=== PATIENT | male | born 1990 | race Caucasian/White ===

== ENCOUNTER 2016-11-12 19:52 | Emergency (ER) | payer OTHER ==
--- NOTE | 2016-11-12 23:05 | ED ORDER SUMMARY ---
..... Patient: MAG SHANKAR OrderSheet [facility] VisitID: [id number] [address] [place] [address] 26y, M Registration Date/Time: 11/12/2016 ORDER SHEET Weight: 78.4 kg (stated) Allergies: Sulfa Antibiotics GENERAL ORDERS: US Venous Right Urgent (21:21 11/12/2016 AMcQuoid ER Tech1 verbal order read back to ABlanchette PA-C) (Ack 21:23 AMcQuoid ER Tech1) (21:45 KKnebel R.N.) Culture, Wound Deep (Arm) (abscess) Urgent (21:29 11/12/2016 ABlanchette PA-C) (Ack 21:33 AMcQuoid ER Tech1) (21:45 KKnebel R.N.) Chest 2V Urgent (21:30 11/12/2016 ABlanchette PA-C) (Ack 21:33 AMcQuoid ER Tech1) (22:19 Brianna) CBC w Diff Urgent (21:30 11/12/2016 ABlanchette PA-C) (Ack 21:33 AMcQuoid ER Tech1) (21:45 KKnebel R.N.) CMP Urgent (21:30 11/12/2016 ABlanchette PA-C) (Ack 21:33 AMcQuoid ER Tech1) (21:45 KKnebel R.N.) MEDICATION ORDERS: Clonidine Topical 0.2 mg (NOW) (22:37 11/12/2016 Cindi YARBROUGH) (Hold 23:12 KKnebel R.N.) IV FLUIDS: IV NS with Normal Saline 1 Liter: initial bolus none -, then 1000 mL/hr for X1 (NOW); Ridge (21:28 11/12/2016 ABlanchette PA-C) (22:00 KKnebel R.N.) Vancomycin IV 1 gm/200mL (NOW) (21:29 11/12/2016 ABlanchette PA-C) (22:00 KKnebel R.N.) Ativan IV 1 mg (NOW) (22:36 11/12/2016 Cindi YARBROUGH) (Hold 23:12 KKnebel R.N.) ORDER SHEET NOTES: [Electronically signed by Shira Vasquez R.N. (23:14 11/12/2016)] [Electronically signed by Mich Hui MD (21:36 11/15/2016)] [Electronically locked/signed by Shira Vasquez R.N. (23:14 11/12/2016)]
--- NOTE | 2016-11-12 23:05 | ED CLINICAL REPORT ---
Clinical Report - Physicians/Mid Levels [facility] [address] [place] [address] 11/12/2016 19:54 Patient: MAG SHANKAR Time Seen: 21:19 Nov 12 2016. Arrived- By private vehicle. Historian- patient. CPT: ER phys charges level 4 (#[id number]). HISTORY OF PRESENT ILLNESS Chief Complaint: BOIL. 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 Does not recall events relating to the onset. (about 1 months). It is described as burning and painful. He has had fever and muscle aches. and is still present. It is described as painful. It has been located on the right upper extremity, left upper extremity and right lower extremity. A cause has been identified. (IVDA). Similar symptoms previously: Recent medical care: Not recently seen/assessed. REVIEW OF SYSTEMS No fever, chills, sore throat, difficulty breathing or hoarseness. No lump in throat, enlarged lymph nodes, abdominal pain, nausea or diarrhea. No difficulty with urination, joint pain or vomiting. All systems otherwise negative, except as recorded above. PAST HISTORY Appendectomy. Hand surgery. Tonsillectomy. Medications: None. Allergies: Sulfa Antibiotics. SOCIAL HISTORY Heavy tobacco smoker (cigarette)- 1 pack per day. History of drug use: heroin, methamphetamines, marijuana. No alcohol use. ADDITIONAL NOTES The nursing notes have been reviewed. PHYSICAL EXAM Vital Signs: 11/12/2016 20:00 BP: 158/76. HR: 119. RR: 16. O2 saturation: 98%. Temp: 99.5 F. Pain level now: 6/10. Appearance: Alert. Patient in mild distress. Eyes: Pupils equal, round and reactive to light. Conjunctivae and eyelids normal. ENT: Nose normal. Pharynx normal. Neck: Neck supple. CVS: Normal heart rate and rhythm. Heart sounds normal. No cardiac murmur. Respiratory: No respiratory distress. Breath sounds normal. Chest nontender. Abdomen: Nontender. Skin: Skin warm and dry. No rash. Medium area of cellulitis with erythema to right leg and left arm. Single medium abscess with fluctuance and pointing to right arm. Extremities: Normal external inspection. Extremities nontender. Neuro: Oriented X 3. No motor deficit. No sensory deficit. LABS, X-RAYS, AND EKG Lower Extremity Sonography: No DVT seen, Phlegmon vs abscess over the mid calf. Unincapsulated. 1 cm by 3mm in depth. Study type: utilized color Doppler sonography. The exam was performed by a technical maintenance technician. The study was independently viewed by me and interpreted contemporaneously by me. Laboratory Tests: CBC w Diff: (OPAL: 11/12/2016 21:45) ( MsgRcvd 11/12/2016 21:51) Final results Test Result Flag Units (Reference) WHITE BLOOD COUNT 6.3 K/uL (4.5-11.5) RED BLOOD COUNT 4.57 M/uL (4.50-5.90) HEMOGLOBIN 11.8 L gm/dL (13.5-17.5) HEMATOCRIT 35.4 L % (41.0-53.0) MEAN CELL VOLUME 77 L fL (80-100) MEAN CORPUSCULAR HGB 26 pg (26-34) MEAN CORPUSCULAR HGB CONC 33 g/dL (31-37) RED CELL DISTRIBUTION WIDTH 14.1 % (11.6-14.8) PLATELET COUNT 283 K/uL (150-400) NEUTROPHIL % 71.4 % (50-75) LYMPH % 19.3 L % (25-40) MONO % 8.1 % (3-14) EOSINOPHIL % 0.8 % (0-4) BASOPHIL % 0.4 % (0-2) CMP: (OPAL: 11/12/2016 21:45) ( MsgRcvd 11/12/2016 22:06) Final results Test Result Flag Units (Reference) GLUCOSE 118 H mg/dL (70-110) BUN 16 mg/dL (7-18) CREATININE 1.0 mg/dL (0.6-1.3) Estimated GFR >60 mL/min Estimated GFR- >60 mL/min Note: Persistent reduction over 3 months in eGFR<60 mL/min/1.73 m2 defines CKD. Patients with eGFR values>=60 mL/min/1.73 m2 may also have CKD if evidence ofpersistent proteinuria. Additional information may be foundat [email or web address].org. SODIUM 133 L mmol/L (136-145) POTASSIUM 4.0 mmol/L (3.5-5.1) CHLORIDE 99 mmol/L (98-107) CARBON DIOXIDE 27 mmol/L (21-32) CALCIUM 8.9 mg/dL (8.5-10.1) TOTAL PROTEIN 8.1 g/dL (6.4-8.2) ALBUMIN 3.8 g/dL (3.3-5.0) BILIRUBIN, TOTAL 1.1 H mg/dL (0.0-1.0) ALKALINE PHOSPHATASE 134 H U/L (46-116) AST (SGOT) 27 U/L (15-37) ALT (SGPT) 26 U/L (12-78) . PROGRESS AND PROCEDURES Course of Care: Pt notes rash progression over the past 2 days over right calf Pt also has what appears to multiple micro-abscesses and cellulitis on the left forearm and arm. Recommended admission and arrangements made but patient changed her mind and decided to leave against medical advice. Patient/family counseled. Referred for substance abuse counseling. Disposition: Discharged. CLINICAL IMPRESSION Cellulitis of the right lower leg, left upper arm and left forearm. Substance abuse problems: abuse of cannabis, opiates and methamphetamine. Leaving AMA. INSTRUCTIONS Warnings: Further evaluation is necessary. AMA warnings: Time of assessment: 23:02 Nov 12 2016. Oriented to person, place, and time. Gives appropriate answers and rational explanation of refusal of care. Speaks coherently. No signs of psychosis, auditory hallucinations, delusional thinking, suicidal ideations or slurred speech. No tangential thinking, visual hallucinations or homicidal ideations. Abstract thinking intact. Clinical Impression: the patient has the capacity to make decisions regarding the medical care offered. Aware of suspected diagnosis suggested by screening exam. The suspected diagnosis, based upon the initiated medical screening exam, is Cellulitis in 2 separate areas as well as micro-abscesses due to IVDA. SBE not ruled out. and has been discussed with the patient and family. Acknowledges understanding of the reasons for recommendations regarding medical treatment and admission to facility. The recommended medical care being refused is admission to hospital. and has been discussed with the patient and family. The risks of refusing recommended care that were disclosed are , permanent mental impairment, loss of limb and loss of current lifestyle. Alternatives for the patient's care that were offered yet declined include transfer. Discharge instructions were provided to the patient. ( Pt states he will return tomorrow.). REFUSAL OF CARE STATEMENT (patient to review and sign in discharge instructions): I have read this paragraph. I understand that a doctor at this hospital wants to give me certain medical care. The doctor explained that care to me, and I understand what that care is. The doctor also explained to me what could happen to me if I leave here without having that care, and I understand what he said. I want to leave this hospital without receiving the recommended care. I know that I am welcome to return to this hospital at any time to receive the recommended care or any other care that I may need at any time, regardless of my ability to pay for such care. (Electronically signed by Mich Hui MD 11/15/2016 21:36)
--- NOTE | 2016-11-12 23:05 | DIAGNOSTIC IMAGING REPORT ---
PROCEDURE: US VENOUS - RIGHT EXT INDICATION: SWELLING TECHNIQUE: Duplex sonography of the deep venous system in the right lower extremity was performed. Compression and augmentation techniques were used. COMPARISON: None. FINDINGS: Each interrogated segment of deep vein from the common femoral vein into the calf veins demonstrates normal compressibility, augmentation and/or color Doppler flow without filling defect. There is moderate subcutaneous edema in the posterior calf. In the deep subcutaneous tissues above the muscle layer, there is a focal, unencapsulated, avascular area of fluid interdigitating between fat lobules. No discrete abscess, mass, superficial thrombophlebitis. IMPRESSION: 1. No deep venous thrombosis in the right lower extremity. 2. Cellulitis and focal subcutaneous edema in the posterior calf. No evidence of drainable abscess. 3. Discussed with Dr. Hui.
--- NOTE | 2016-11-12 23:05 | ED NURSING NOTES ---
Clinical Report - Nurses [facility] [address] [place] [address] 11/12/2016 19:54 Patient: MAG SHANKAR TRIAGE Triage time 20:Nov 12 2016. Acuity: LEVEL 3. Chief Complaint: SKIN RASH and . abcess. Alert. No acute distress. GRSI COMA SCORE: Gris Coma Scale: 15- eyes open spontaneously (4); best verbal response- oriented x 4 (5); best motor response- obeys commands (6). --20:06 Shira Vasquez R.N. 20:00 11/12/16. BP: 158/76. HR: 119. RR: 16. O2 saturation: 98%. Temp: 99.5 F. Pain level now: 12/03. --20:06 Shira Vasquez R.N. Weight: 78.4 kg stated. Height/Length: 67 inches Per Patient. BMI: 27.1. --20:06 Shira Vasquez R.N. Medications None. --20:03 Shira Vasquez R.N. Allergies Sulfa Antibiotics. --20:04 Shira Vasquez R.N. History Arrived by private vehicle. Historian: patient. Accompanied by family and grandmother. Reported as located on the right arm, right leg and left arm. Does not recall events relating to the onset. (about 1 months). It is described as burning and painful. He has had fever and muscle aches. 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 SOCIAL HX: Current every day heavy tobacco smoker (cigarette)- less than 1 pack per day. History of drug use: heroin, methamphetamines, marijuana. Recently used drugs just prior to arrival. No alcohol use. No infectious disease exposure. SELF HARM ASSESSMENT: A self harm assessment was performed. The patient answered "no" to the question "Do you have thoughts of harming or killing yourself?". FALL RISK ASSESSMENT: Fall risk assessment completed. No fall risk identified. NUTRITIONAL RISK ASSESSMENT: The nutritional risk assessment revealed no deficiencies. FUNCTIONAL ASSESSMENT: Functional assessment: no impairments noted. LEARNING NEEDS ASSESSMENT: The learning needs assessment revealed no barriers. ABUSE ASSESSMENT: Abuse assessment: The patient was asked "Do you feel safe in your home?". SKIN INTEGRITY ASSESSMENT: Skin integrity risk assessment completed. No skin integrity risk identified. --20:06 Shira Vasquez R.N. ADDITIONAL SURGERIES: Appendectomy. Hand surgery. Tonsillectomy. --20:05 Shira Vasquez R.N. Interventions ID and allergy band on patient. To room. --20:06 Shira Vasquez R.N. PHYSICAL ASSESSMENT Ambulatory to room. GENERAL / NEURO / PSYCH: Alert. Appears in pain. Oriented X 4. Pupillary exam: Pupils are equal, round, and reactive to light. Right pupil 5mm and round. Left pupil: 5mm and round. RESPIRATORY: Respirations not labored. CVS: Capillary refill less than 2 seconds. GI / : Abdomen nontender. SKIN: Skin is warm and dry. --20: Shira Vasquez R.N. NURSING PROGRESS NOTES Patient gowned. Head of bed elevated. Patient identifiers checked. Call light placed in reach. Side rails up x 1. Bed placed in lowest position. Brakes of bed on. --20:09 Shira Vasquez R.N. 21:00 11/12/16. HR: 120. O2 saturation: 98%. --21:01 Shira Vasquez R.N. 21:45 11/12/2016 Site #1 started via IV in the right hand with an 22g angiocath, with aseptic technique and good blood return; one attempt. Blood drawn: rainbow set. Labeled in the presence of the patient and sent to the lab. Saline lock flushed with 10 mL saline. --21:45 Shira Vasquez R.N. 22:00 11/12/2016 Started bag #1 1000 mL IV Fluids IV NS (Saline); bolus of 250 mL over 4 hour(s) via site #1 via IV pump. Allergies verified and confirmed 5 rights. IV patency established. IV site checked: no pain, redness, or swelling. IV flushed thoroughly pre- and post-medication administration. --22:00 Shira Vasquez R.N. 22:00 11/12/2016 Started 1 gm of Vancomycin IVPB in bag #1 200 mL; at 200 mL/hr over 1 hour(s) via site #1 via IV pump. Allergies verified and confirmed 5 rights. IV patency established. IV site checked: no pain, redness, or swelling. IV flushed thoroughly pre- and post-medication administration. --22:00 Shira Vasquez R.N. 22:54 11/12/2016 IV Fluids IV NS Discontinued: bag #1 completed. Total amount infused: 1000 mL. IV patency established. IV site checked: no pain, redness, or swelling. IV flushed thoroughly. --23:04 Deann Alves 22:59 11/12/2016 Vancomycin IVPB Discontinued: bag #1 completed. Total amount infused: 200 mL. IV patency established. IV site checked: no pain, redness, or swelling. IV flushed thoroughly. --23:04 Deann Alves. DISPOSITION / DISCHARGE Departure time: :Nov 12 2016. Condition at departure: unchanged. The patient left the Emergency Department against medical advice; patient was accompanied by a family member. The patient appears to be alert and oriented x4. He notified the ED staff prior to leaving the department and stated is leaving the ED due to personal reasons. Notified the ED physician of patient departure. Prior to leaving the ED, he was advised to stay for completion of treatment and return if needed. He was informed of the risks of leaving and verbalized understanding of these risks. Patient signed form prior to leaving. He left the Emergency Department ambulatory and via private vehicle. FALL RISK ASSESSMENT: Fall risk assessment completed. No fall risk identified. --23:11 Shira Vasquez R.N. 23:01 11/12/16. BP: 121/97. HR: 104. RR: 16. O2 saturation: 98%. Pain level now: 07/05. --23:11 Shira Vasquez R.N. Locked/Released at 11/12/2016 23:14 by Shira Vasquez R.N.
--- NOTE | 2016-11-12 23:05 | ED ORDER SUMMARY ---
..... Patient: MAG SHANKAR OrderSheet [facility] VisitID: [id number] [address] [place] [address] 26y, M Registration Date/Time: 11/12/2016 ORDER SHEET Weight: 78.4 kg (stated) Allergies: Sulfa Antibiotics GENERAL ORDERS: US Venous Right Urgent (21:21 11/12/2016 AMcQuoid ER Tech1 verbal order read back to ABlanchette PA-C) (Ack 21:23 AMcQuoid ER Tech1) (21:45 KKnebel R.N.) Culture, Wound Deep (Arm) (abscess) Urgent (21:29 11/12/2016 ABlanchette PA-C) (Ack 21:33 AMcQuoid ER Tech1) (21:45 KKnebel R.N.) Chest 2V Urgent (21:30 11/12/2016 ABlanchette PA-C) (Ack 21:33 AMcQuoid ER Tech1) (22:19 Brianna) CBC w Diff Urgent (21:30 11/12/2016 ABlanchette PA-C) (Ack 21:33 AMcQuoid ER Tech1) (21:45 KKnebel R.N.) CMP Urgent (21:30 11/12/2016 ABlanchette PA-C) (Ack 21:33 AMcQuoid ER Tech1) (21:45 KKnebel R.N.) MEDICATION ORDERS: Clonidine Topical 0.2 mg (NOW) (22:37 11/12/2016 Cindi YARBROUGH) (Hold 23:12 KKnebel R.N.) IV FLUIDS: IV NS with Normal Saline 1 Liter: initial bolus none -, then 1000 mL/hr for X1 (NOW); Ridge (21:28 11/12/2016 ABlanchette PA-C) (22:00 KKnebel R.N.) Vancomycin IV 1 gm/200mL (NOW) (21:29 11/12/2016 ABlanchette PA-C) (22:00 KKnebel R.N.) Ativan IV 1 mg (NOW) (22:36 11/12/2016 Cindi YARBROUGH) (Hold 23:12 KKnebel R.N.) ORDER SHEET NOTES: [Electronically signed by Shira Vasquez R.N. (23:14 11/12/2016)] [Electronically signed by Mich Hui MD (21:36 11/15/2016)] [Electronically locked/signed by Shira Vasquez R.N. (23:14 11/12/2016)]
--- NOTE | 2016-11-12 23:05 | ED NURSING NOTES ---
Clinical Report - Nurses [facility] [address] [place] [address] 11/12/2016 19:54 Patient: MAG SHANKAR TRIAGE Triage time 20:Nov 12 2016. Acuity: LEVEL 3. Chief Complaint: SKIN RASH and . abcess. Alert. No acute distress. GRIS COMA SCORE: Gris Coma Scale: 15- eyes open spontaneously (4); best verbal response- oriented x 4 (5); best motor response- obeys commands (6). --20:06 Shira Vasquez R.N. 20:00 11/12/16. BP: 158/76. HR: 119. RR: 16. O2 saturation: 98%. Temp: 99.5 F. Pain level now: 12/03. --20:06 Shira Vasquez R.N. Weight: 78.4 kg stated. Height/Length: 67 inches Per Patient. BMI: 27.1. --20:06 Shira Vasquez R.N. Medications None. --20:03 Shira Vasquez R.N. Allergies Sulfa Antibiotics. --20:04 Shira Vasquez R.N. History Arrived by private vehicle. Historian: patient. Accompanied by family and grandmother. Reported as located on the right arm, right leg and left arm. Does not recall events relating to the onset. (about 1 months). It is described as burning and painful. He has had fever and muscle aches. 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 SOCIAL HX: Current every day heavy tobacco smoker (cigarette)- less than 1 pack per day. History of drug use: heroin, methamphetamines, marijuana. Recently used drugs just prior to arrival. No alcohol use. No infectious disease exposure. SELF HARM ASSESSMENT: A self harm assessment was performed. The patient answered "no" to the question "Do you have thoughts of harming or killing yourself?". FALL RISK ASSESSMENT: Fall risk assessment completed. No fall risk identified. NUTRITIONAL RISK ASSESSMENT: The nutritional risk assessment revealed no deficiencies. FUNCTIONAL ASSESSMENT: Functional assessment: no impairments noted. LEARNING NEEDS ASSESSMENT: The learning needs assessment revealed no barriers. ABUSE ASSESSMENT: Abuse assessment: The patient was asked "Do you feel safe in your home?". SKIN INTEGRITY ASSESSMENT: Skin integrity risk assessment completed. No skin integrity risk identified. --20:06 Shira Vasquez R.N. ADDITIONAL SURGERIES: Appendectomy. Hand surgery. Tonsillectomy. --20:05 Shira Vasquez R.N. Interventions ID and allergy band on patient. To room. --20:06 Shira Vasquez R.N. PHYSICAL ASSESSMENT Ambulatory to room. GENERAL / NEURO / PSYCH: Alert. Appears in pain. Oriented X 4. Pupillary exam: Pupils are equal, round, and reactive to light. Right pupil 5mm and round. Left pupil: 5mm and round. RESPIRATORY: Respirations not labored. CVS: Capillary refill less than 2 seconds. GI / : Abdomen nontender. SKIN: Skin is warm and dry. --20: Shira Vasquez R.N. NURSING PROGRESS NOTES Patient gowned. Head of bed elevated. Patient identifiers checked. Call light placed in reach. Side rails up x 1. Bed placed in lowest position. Brakes of bed on. --20:09 Shira Vasquez R.N. 21:00 11/12/16. HR: 120. O2 saturation: 98%. --21:01 Shira Vasquez R.N. 21:45 11/12/2016 Site #1 started via IV in the right hand with an 22g angiocath, with aseptic technique and good blood return; one attempt. Blood drawn: rainbow set. Labeled in the presence of the patient and sent to the lab. Saline lock flushed with 10 mL saline. --21:45 Shira Vasquez R.N. 22:00 11/12/2016 Started bag #1 1000 mL IV Fluids IV NS (Saline); bolus of 250 mL over 4 hour(s) via site #1 via IV pump. Allergies verified and confirmed 5 rights. IV patency established. IV site checked: no pain, redness, or swelling. IV flushed thoroughly pre- and post-medication administration. --22:00 Shira Vasquez R.N. 22:00 11/12/2016 Started 1 gm of Vancomycin IVPB in bag #1 200 mL; at 200 mL/hr over 1 hour(s) via site #1 via IV pump. Allergies verified and confirmed 5 rights. IV patency established. IV site checked: no pain, redness, or swelling. IV flushed thoroughly pre- and post-medication administration. --22:00 Shira Vasquez R.N. 22:54 11/12/2016 IV Fluids IV NS Discontinued: bag #1 completed. Total amount infused: 1000 mL. IV patency established. IV site checked: no pain, redness, or swelling. IV flushed thoroughly. --23:04 Deann Alves 22:59 11/12/2016 Vancomycin IVPB Discontinued: bag #1 completed. Total amount infused: 200 mL. IV patency established. IV site checked: no pain, redness, or swelling. IV flushed thoroughly. --23:04 Deann Alves. DISPOSITION / DISCHARGE Departure time: :Nov 12 2016. Condition at departure: unchanged. The patient left the Emergency Department against medical advice; patient was accompanied by a family member. The patient appears to be alert and oriented x4. He notified the ED staff prior to leaving the department and stated is leaving the ED due to personal reasons. Notified the ED physician of patient departure. Prior to leaving the ED, he was advised to stay for completion of treatment and return if needed. He was informed of the risks of leaving and verbalized understanding of these risks. Patient signed form prior to leaving. He left the Emergency Department ambulatory and via private vehicle. FALL RISK ASSESSMENT: Fall risk assessment completed. No fall risk identified. --23:11 Shira Vasquez R.N. 23:01 11/12/16. BP: 121/97. HR: 104. RR: 16. O2 saturation: 98%. Pain level now: 07/05. --23:11 Shira Vasquez R.N. Locked/Released at 11/12/2016 23:14 by Shira Vasquez R.N.
--- NOTE | 2016-11-12 23:14 | DIAGNOSTIC IMAGING REPORT ---
PROCEDURE: XR CHEST 2 VIEW INDICATION: SHORTNESS OF BREATH TECHNIQUE: Two views. COMPARISON: None. FINDINGS: The cardiomediastinal contour and central vasculature are within normal limits. The lungs are clear without focal consolidation, pleural effusion, or pneumothorax. The visualized osseous structures are intact. IMPRESSION: 1. Normal chest.
--- NOTE | 2016-11-15 21:36 | ED MAR SUMMARY ---
..... Medication Administration Record [facility] [address], [place] [address] Patient: MAG SHANKAR Visit ID: [id number] 26y, M Weight: 78.4 kg Height/Length: 67 in BMI: 27.1 ALLERGIES: Sulfa Antibiotics Start 22:00 11/12/2016 Shira Vasquez R.N., Stop 22:54 11/12/2016 Deann Alves, Medication Administered: IV NS (SALINE), Dose: IV Fluids, Bolus: 250 mL over 4 hour(s), Dispensed: 1000 mL bag, Site: #1 right hand. Medication Ordered: IV NS with Normal Saline 1 Liter: initial bolus none -, then 1000 mL/hr for X1 (NOW); Ridge. Start 22:00 11/12/2016 Shira Vasquez R.N., Stop 22:59 11/12/2016 Deann Alves, Medication Administered: VANCOMYCIN [IVPB], Dose: 1 gm IVPB over 1 hour(s), Rate: 200 mL/hr, Dispensed: 200 mL bag, Site: #1 right hand. Medication Ordered: Vancomycin IV 1 gm/200mL (NOW).
--- NOTE | 2016-11-15 21:36 | ED MAR SUMMARY ---
..... Medication Administration Record [facility] [address], [place] [address] Patient: MAG SHANKAR Visit ID: [id number] 26y, M Weight: 78.4 kg Height/Length: 67 in BMI: 27.1 ALLERGIES: Sulfa Antibiotics Start 22:00 11/12/2016 Shira Vasquez R.N., Stop 22:54 11/12/2016 Deann Alves, Medication Administered: IV NS (SALINE), Dose: IV Fluids, Bolus: 250 mL over 4 hour(s), Dispensed: 1000 mL bag, Site: #1 right hand. Medication Ordered: IV NS with Normal Saline 1 Liter: initial bolus none -, then 1000 mL/hr for X1 (NOW); Ridge. Start 22:00 11/12/2016 Shira Vasquez R.N., Stop 22:59 11/12/2016 Deann Alves, Medication Administered: VANCOMYCIN [IVPB], Dose: 1 gm IVPB over 1 hour(s), Rate: 200 mL/hr, Dispensed: 200 mL bag, Site: #1 right hand. Medication Ordered: Vancomycin IV 1 gm/200mL (NOW).
--- NOTE | 2016-11-15 21:36 | ED MED RECONCILIATION SUMMARY ---
Patient: MAG SHANKAR Medication Reconciliation Report [facility] VisitID: [id number] [address] [place] [address] 26y, M Registration Date/Time: 11/12/2016 Weight: 78.4 kg Height/Length: 67 in. BMI: 27.1 ALLERGIES: Sulfa Antibiotics The patient's Home Medications are listed below: NONE. The source(s) of the original Home Medication information: Not obtained. The following Medications were given to the patient in the Emergency Department: IV NS IV Fluids bolus 250 mL over 4 hour(s), administered: 11/12/2016 10:00:00 PM Vancomycin [IVPB] IVPB bolus 0, then 1 gm 200 mL/hr, administered: 11/12/2016 10:00:00 PM The following Medications were prescribed to the patient: None.
--- NOTE | 2016-11-15 21:36 | ED DISCHARGE INSTRUCTIONS ---
Patient: MAG SHANKAR General Instructions [facility] VisitID: [id number] [place] [address] 26y, M Registration Date/Time: 11/12/2016 Cellulitis of the right lower leg, left upper arm and left forearm. Substance abuse problems: abuse of cannabis, opiates and methamphetamine. Leaving AMA. INSTRUCTIONS Warnings: Further evaluation is necessary. AMA warnings: Time of assessment: 23:02 Nov 12 2016. Oriented to person, place, and time. Gives appropriate answers and rational explanation of refusal of care. Speaks coherently. No signs of psychosis, auditory hallucinations, delusional thinking, suicidal ideations or slurred speech. No tangential thinking, visual hallucinations or homicidal ideations. Abstract thinking intact. Clinical Impression: the patient has the capacity to make decisions regarding the medical care offered. Aware of suspected diagnosis suggested by screening exam. The suspected diagnosis, based upon the initiated medical screening exam, is Cellulitis in 2 separate areas as well as micro-abscesses due to IVDA. SBE not ruled out. and has been discussed with the patient and family. Acknowledges understanding of the reasons for recommendations regarding medical treatment and admission to facility. The recommended medical care being refused is admission to hospital. and has been discussed with the patient and family. The risks of refusing recommended care that were disclosed are , permanent mental impairment, loss of limb and loss of current lifestyle. Alternatives for the patient's care that were offered yet declined include transfer. Discharge instructions were provided to the patient. ( Pt states he will return tomorrow.). REFUSAL OF CARE STATEMENT (patient to review and sign in discharge instructions): I have read this paragraph. I understand that a doctor at this hospital wants to give me certain medical care. The doctor explained that care to me, and I understand what that care is. The doctor also explained to me what could happen to me if I leave here without having that care, and I understand what he said. I want to leave this hospital without receiving the recommended care. I know that I am welcome to return to this hospital at any time to receive the recommended care or any other care that I may need at any time, regardless of my ability to pay for such care. ADDITIONAL INFORMATION Cellulitis You have an infection of the skin known as cellulitis. This usually starts with a scrape, cut, insect bite, blister or other opening in the skin which becomes infected. This is a serious condition. It must be watched closely to be sure the infection is not spreading. With antibiotic treatment, the size of the red area will gradually shrink in size until the skin returns to normal. This will take 7-10 days. The red area should never increase in size once the antibiotic medicine has been started. Occasionally, an infection will be resistant to one antibiotic and another one will have to be used. Home Care: 1) Limit the use of the affected part, since excess movement can cause the infection to spread. 2) If the infection is on your leg, walk as little as possible during the first few days of the treatment. Keep your leg elevated while sitting. This will reduce swelling. 3) Take all of the antibiotic medicine exactly as directed until it is gone. Be careful not to miss any doses, especially during the first seven days. Follow Up with your doctor or this facility as directed. Check the infected area daily for the warning signs listed below. Get Prompt Medical Attention if any of the following occur: -- Spreading area of redness -- Increasing swelling or pain -- Appearance of pus or drainage -- Fever over 100.4 F (38.0 C) oral, or over 101.4 F (38.6 C) rectal, after two days on antibiotics Staph Infection (MRSA) "Staph" is the short name for the common bacteria called "staphylococcus aureus". Staph bacteria are often present on the skin without causing an infection. If it gets under the skin an infection occurs. This causes redness, tenderness, swelling and sometimes fluid drainage. MRSA stands for "Methicillin-Resistant Staph Aureus". Unlike a common staph infection, MRSA bacteria are resistant to the usual antibiotics and harder to treat. Also, MRSA is more toxic than common staph bacteria. It can spread quickly throughout the body and cause a life-threatening illness. MRSA is spread to others by direct physical contact with the bacteria. MRSA can also be transmitted from items contaminated by a person who has the bacteria, such as bandages, towels, bed sheets, or sports equipment. It is not spread through the air. Once you have a MRSA skin infection, you are at risk of having it recur in the future. If MRSA infection is suspected, the doctor may take a wound culture to confirm the diagnosis. Any abscess will be drained. One or sometimes two antibiotics that work against MRSA will be prescribed. Home Care: 1) Take any antibiotics prescribed exactly as directed until they are gone. 2) Follow the same washing procedures as outlined for Household Members below. 3) Keep draining wounds covered with clean, dry bandages. Change dressings as they become soiled. 4) You and those in contact with you should wash their hands frequently with soap and warm water or use an alcohol-based hand group president. Do this after each time you change the bandage or touch the wound. 5) Avoid sharing personal items such as towels, washcloths, razors, clothing, or uniforms. Wash soiled sheets, towels or clothes in hot water with laundry detergent. Use an automatic clothes dryer set on high to kill any remaining bacteria. 6) Remove any artificial nails and nail cook islander. 7) If you use a gym, wipe down equipment before and after each use. Treatment Of Household Members If you have been diagnosed with possible MRSA infection, those living with you are at higher risk of carrying the bacteria on their skin or in their nose, even if there is no sign of infection. Bacteria must be removed from the skin of all household members (including you) at the same time, so that it is not passed back and forth. Advise them to remove the bacteria as follows: Wash your whole body (scalp to toes) daily for five days with Hibiclens (chlorhexidine). Scrub fingernails with a brush for one minute twice a day. If any skin infections are present (boils, abscess, infected cut) these must be treated by a doctor. Washing alone will not treat a MRSA infection. Clean counter tops and children's toys; do not share personal items such as toothbrush and razors. It is okay to share glasses, plates, utensils. If antibiotic ointment was prescribed use it as directed. Follow Up with your doctor or as advised by our staff. If a wound culture was taken, call as directed in two days to obtain the results. If the culture result is positive for MRSA, tell medical personnel in the future that you were treated for this type of infection. Get Prompt Medical Attention if any of the following occur: -- Increasing redness, swelling or pain -- Red streaks in the skin around the wound -- Weakness or dizziness -- New appearance of pus or drainage from the wound -- New fever over 100.4 F (38.0 C) You have been given the following additional information: Cellulitis MRSA Skin Infection, Suspected Or Confirmed (Electronically signed by Mich Hui MD 11/15/2016 21:36)
--- NOTE | 2016-11-15 21:36 | ED MED RECONCILIATION SUMMARY ---
Patient: MAG SHANKAR Medication Reconciliation Report [facility] VisitID: [id number] [address] [place] [address] 26y, M Registration Date/Time: 11/12/2016 Weight: 78.4 kg Height/Length: 67 in. BMI: 27.1 ALLERGIES: Sulfa Antibiotics The patient's Home Medications are listed below: NONE. The source(s) of the original Home Medication information: Not obtained. The following Medications were given to the patient in the Emergency Department: IV NS IV Fluids bolus 250 mL over 4 hour(s), administered: 11/12/2016 10:00:00 PM Vancomycin [IVPB] IVPB bolus 0, then 1 gm 200 mL/hr, administered: 11/12/2016 10:00:00 PM The following Medications were prescribed to the patient: None.
== END 2016-11-12 23:10 | disposition left against medical advice (07) ==
LOC: ED SRH 19:52
DX: L02.413 Cutaneous abscess of right upper limb (principal); L02.414 Cutaneous abscess of left upper limb; L02.416 Cutaneous abscess of left lower limb; F17.210 Nicotine dependence, cigarettes, uncomplicated; F12.10 Cannabis abuse, uncomplicated; F11.10 Opioid abuse, uncomplicated

== ENCOUNTER 2016-11-13 16:54 | Emergency (ER) | payer OTHER ==
--- NOTE | 2016-11-13 20:06 | ED NURSING NOTES ---
Clinical Report - Nurses [facility] [address] [place] [address] 11/13/2016 16:56 Patient: CALEB SHANKAR TRIAGE Triage time 17:Nov 13 2016. Acuity: LEVEL 3. Chief Complaint: abscess. Alert. No acute distress. SEPSIS SCREEN: Sepsis Screen. Negative (no infection suspected/documented). Heart rate greater than 90. Respiratory rate not greater than 20. GRIS COMA SCORE: [place] Coma Scale: 15- eyes open spontaneously (4); best verbal response- oriented x 4 (5); best motor response- obeys commands (6). --17:18 Shira Vasquez R.N. 17:13 11/13/16. BP: 136/106. HR: 102. RR: 16. O2 saturation: 98%. Temp: 98.5 F. Pain level now: 08/05. --17:18 Shira Vasquez R.N. Weight: 78.4 kg stated. Height/Length: 68 inches Per Patient. BMI: 26.3. --17:15 Shira Vasquez R.N. Medications None. --17:14 Shira Vasquez R.N. Allergies Sulfa Antibiotics. --17:14 Shira Vasquez R.N. History Arrived by private vehicle. Historian: patient. Accompanied by family and grandmother. Reported as (right lower leg). Onset. (2 days ago). It is described as burning and painful. He has had muscle aches. 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 PAST MEDICAL HX: Immunizations: up-to-date. SOCIAL HX: Current every day heavy tobacco smoker (cigarette)- less than 1 pack per day. History of drug use: heroin, methamphetamines, marijuana. Recently used drugs just prior to arrival. No alcohol use. No infectious disease exposure. SELF HARM ASSESSMENT: A self harm assessment was performed. The patient answered "no" to the question "Do you have thoughts of harming or killing yourself?". FALL RISK ASSESSMENT: Fall risk assessment completed. No fall risk identified. NUTRITIONAL RISK ASSESSMENT: The nutritional risk assessment revealed no deficiencies. FUNCTIONAL ASSESSMENT: Functional assessment: no impairments noted. LEARNING NEEDS ASSESSMENT: The learning needs assessment revealed no barriers. ABUSE ASSESSMENT: Abuse assessment: The patient was asked "Do you feel safe in your home?". SKIN INTEGRITY ASSESSMENT: Skin integrity risk assessment completed. No skin integrity risk identified. --17:18 Shira Vasquez R.N. PROBLEMS: Lifestyle / Substance Problems. Cellulitis. --17:15 Shira Vasquez R.N. ADDITIONAL SURGERIES: Appendectomy. Hand surgery. Tonsillectomy. --17:15 Shira Vasquez R.N. Interventions ID band on patient. To room. --17:18 Shira Vasquez R.N. PHYSICAL ASSESSMENT GENERAL / NEURO / PSYCH: Alert. Appears anxious. Oriented X 4. HEENT: Mucous membranes are pink. RESPIRATORY: Respirations not labored. CVS: Capillary refill less than 2 seconds. GI / : Abdomen nontender. SKIN: Skin is warm and dry. Skin is diaphoretic. --17:20 Shira Vasquez R.N. NURSING PROGRESS NOTES Patient gowned. Head of bed elevated. Patient identifiers checked. Call light placed in reach. Bed placed in lowest position. --17:20 Shira Vasquez R.N. 17:42 11/13/2016 Site #1 started via IV in the right foot with an 20g angiocath, with aseptic technique and good blood return; one attempt. Blood drawn: rainbow set. Labeled in the presence of the patient and sent to the lab. Saline lock flushed with 10 mL saline. --18:07 Shira Vasquez R.N. 21:05 11/13/16. BP: 110/51. HR: 90. RR: 20. O2 saturation: 100%. Pain level now: 0/10. --21:09 Shira Vasquez R.N. 21:10 11/13/2016 Started 1.5 gm of Vancomycin IVPB; at 0.75 gm/hr over 2 hour(s) via site #1 via IV pump. Allergies verified and confirmed 5 rights. IV patency established. IV site checked: no pain, redness, or swelling. IV flushed thoroughly pre- and post-medication administration. --21:10 Shira Vasquez R.N. 23:06 11/13/2016 Vancomycin IVPB Discontinued: bag #1 completed upon discharge. Total amount infused: 250 mL. IV patency established. IV site checked: no pain, redness, or swelling. IV flushed thoroughly. --23:06 Nigel Lin R.N. DISPOSITION / DISCHARGE Departure time: 2204. --22:04 Nigel Lin R.N. 22:05 11/13/2016 Site #1 removed upon discharge. Catheter intact. Bandaid applied (Bleeding controlled.). --22:05 Nigel Lin R.N. 22:05. Condition at departure: stable. The goals identified in the patient's plan of care were met. No learning barriers present. Discharge instructions provided and reviewed with the patient. Reviewed medication(s) side effects, precautions, dosing and course information. Prescription(s) given to the patient (Caleb verbalizes importance of finishing all prescribed antibiotics.). Patient verbalized understanding. Written instructions provided in [place] Of [place]. ( Caleb verbalizes understanding of all d/c instructions including need to f/u with PCP. He has no questions and voices no concerns at this time.). The patient was discharged by the physician. He was discharged home and accompanied by family. He left the Emergency Department ambulatory and via private vehicle. Family member driving. GRIS COMA SCORE: [place] Coma Scale: 15- eyes open spontaneously (4); best verbal response- oriented x 4 (5); best motor response- obeys commands (6). --23:06 Nigel Lin R.N. 22:00 11/13/16. BP: 118/77 (regular adult cuff) taken on the left arm, via an automated monitor, while sitting. HR: 92 (normal rate). RR: 16 (regular, unlabored and normal). O2 saturation: 99% on room air. Temp: 98.4 F (oral). Pain level now: 0/10. --23:06 Nigel Lin R.N. Locked/Released at 11/13/2016 23:06 by Nigel Lin R.N.
--- NOTE | 2016-11-13 20:06 | ED ORDER SUMMARY ---
..... Patient: MAG SHANKAR OrderSheet [facility] VisitID: [id number] [place] [address] 26y, M Registration Date/Time: 11/13/2016 ORDER SHEET Weight: 78.4 kg (stated) Allergies: Sulfa Antibiotics GENERAL ORDERS: Blood Culture (Yes) (Vancomycin) Urgent (17:41 11/13/2016 Cristofer White) (Ack 17:42 TBergley) (18:07 KKnebel R.N.) CBC w Diff Urgent (17:41 11/13/2016 Cristofer White) (Ack 17:42 TBergley) (18:07 CHARBELnewil R.N.) CMP Urgent (17:41 11/13/2016 Cristofer White) (Ack 17:42 TBergley) (18:07 CHARBELnebel R.N.) UA-Culture if indicated Urgent (17:41 11/13/2016 Cristofer White) (Ack 17:42 TBergley) (18:37 TBergley) Urine Drug Screen Urgent (17:41 11/13/2016 Cristofer White) (Ack 17:42 TBergley) (18:37 TBergley) MEDICATION ORDERS: IV FLUIDS: IV Saline Lock (17:41 11/13/2016 Cristofer White) (18:07 CHARBELnewil R.N.) Vancomycin IV 1.5 gm/500 mL (NOW) (19:28 11/13/2016 Cristofer White) (Ack 19:51 Dionne R.N.) (21:10 CHARBELnebel R.N.) ORDER SHEET NOTES: [Electronically signed by Rod Bustamante Dr. (21:15 11/13/2016)] [Electronically signed by Nigel Lin R.N. (23:06 11/13/2016)] [Electronically locked/signed by Nigel Lin R.N. (23:06 11/13/2016)]
--- NOTE | 2016-11-13 20:06 | ED ORDER SUMMARY ---
..... Patient: MAG SHANKAR OrderSheet [facility] VisitID: [id number] [place] [address] 26y, M Registration Date/Time: 11/13/2016 ORDER SHEET Weight: 78.4 kg (stated) Allergies: Sulfa Antibiotics GENERAL ORDERS: Blood Culture (Yes) (Vancomycin) Urgent (17:41 11/13/2016 Cristofer White) (Ack 17:42 TBergley) (18:07 KKnebel R.N.) CBC w Diff Urgent (17:41 11/13/2016 Cristofer White) (Ack 17:42 TBergley) (18:07 CHARBELnewil R.N.) CMP Urgent (17:41 11/13/2016 Cristofer White) (Ack 17:42 TBergley) (18:07 CHARBELnebel R.N.) UA-Culture if indicated Urgent (17:41 11/13/2016 Cristofer White) (Ack 17:42 TBergley) (18:37 TBergley) Urine Drug Screen Urgent (17:41 11/13/2016 Cristofer White) (Ack 17:42 TBergley) (18:37 TBergley) MEDICATION ORDERS: IV FLUIDS: IV Saline Lock (17:41 11/13/2016 Cristofer White) (18:07 CHARBELnewil R.N.) Vancomycin IV 1.5 gm/500 mL (NOW) (19:28 11/13/2016 Cristofer White) (Ack 19:51 Dionne R.N.) (21:10 CHARBELnebel R.N.) ORDER SHEET NOTES: [Electronically signed by Rod Bustamante Dr. (21:15 11/13/2016)] [Electronically signed by Nigel Lin R.N. (23:06 11/13/2016)] [Electronically locked/signed by Nigel Lin R.N. (23:06 11/13/2016)]
--- NOTE | 2016-11-13 20:06 | ED CLINICAL REPORT ---
Clinical Report - Physicians/Mid Levels [facility] [address] [place] [address] 11/13/2016 16:56 Patient: MAG SHANKAR Time Seen: 17:13. Arrived- By private vehicle. Historian- patient. HISTORY OF PRESENT ILLNESS Chief Complaint: SKIN RASH and BOIL. This started about 1 month ago and is still present and worsening. It was gradual in onset and has been constant. It is described as painful. It has been located on the right upper extremity, left upper extremity and right lower extremity. A cause has been identified (IVDA). No recent insect bite. Similar symptoms previously: Many times. Recent medical care: The patient was seen recently at this facility in the emergency department. REVIEW OF SYSTEMS No fever, chills, difficulty breathing or enlarged lymph nodes. All systems otherwise negative, except as recorded above. PAST HISTORY Lifestyle / Substance Problems. Cellulitis. SURGERIES: Appendectomy. Hand surgery. Tonsillectomy. Medications: None. Allergies: Sulfa Antibiotics. SOCIAL HISTORY Current every day smoker. History of drug use: heroin, methamphetamines, marijuana. Recently used drugs today. No alcohol use. ADDITIONAL NOTES The nursing notes have been reviewed. PHYSICAL EXAM Vital Signs: 11/13/2016 17:13 BP: 136/106. HR: 102. RR: 16. O2 saturation: 98%. Temp: 98.5 F. Pain level now: 2/10. Have been reviewed. Hypertensive. Tachycardic. Respiratory rate normal. Temperature normal. Oxygen saturation normal. Appearance: Alert. Oriented X3. No acute distress. ENT: Pharynx normal. CVS: Normal heart rate and rhythm. Heart sounds normal. Respiratory: No respiratory distress. Breath sounds normal. Skin: Skin warm and dry. Multiple small abscesses with cellulitis to right arm, right leg and left arm (multiple, small abscesses on both arms.). Neuro: Oriented X 3. LABS, X-RAYS, AND EKG Laboratory Tests: CBC w Diff: (OPAL: 11/13/2016 17:30) ( MsgRcvd 11/13/2016 17:48) Final results Test Result Flag Units (Reference) WHITE BLOOD COUNT 8.2 K/uL (4.5-11.5) RED BLOOD COUNT 4.20 L M/uL (4.50-5.90) HEMOGLOBIN 11.0 L gm/dL (13.5-17.5) HEMATOCRIT 32.1 L % (41.0-53.0) MEAN CELL VOLUME 76 L fL (80-100) MEAN CORPUSCULAR HGB 26 pg (26-34) MEAN CORPUSCULAR HGB CONC 34 g/dL (31-37) RED CELL DISTRIBUTION WIDTH 14.2 % (11.6-14.8) PLATELET COUNT 251 K/uL (150-400) NEUTROPHIL % 61.0 % (50-75) LYMPH % 28.7 % (25-40) MONO % 8.3 % (3-14) EOSINOPHIL % 0.9 % (0-4) BASOPHIL % 1.1 % (0-2) CMP: (OPAL: 11/13/2016 17:30) ( MsgRcvd 11/13/2016 18:29) Final results Test Result Flag Units (Reference) GLUCOSE 110 mg/dL (70-110) BUN 17 mg/dL (7-18) CREATININE 0.9 mg/dL (0.6-1.3) Estimated GFR >60 mL/min Estimated GFR- >60 mL/min Note: Persistent reduction over 3 months in eGFR<60 mL/min/1.73 m2 defines CKD. Patients with eGFR values>=60 mL/min/1.73 m2 may also have CKD if evidence ofpersistent proteinuria. Additional information may be foundat www.kidney.org. SODIUM 140 mmol/L (136-145) POTASSIUM 3.4 L mmol/L (3.5-5.1) CHLORIDE 102 mmol/L (98-107) CARBON DIOXIDE 26 mmol/L (21-32) CALCIUM 8.8 mg/dL (8.5-10.1) TOTAL PROTEIN 7.8 g/dL (6.4-8.2) ALBUMIN 3.5 g/dL (3.3-5.0) BILIRUBIN, TOTAL 1.4 H mg/dL (0.0-1.0) ALKALINE PHOSPHATASE 117 H U/L (46-116) AST (SGOT) 26 U/L (15-37) ALT (SGPT) 24 U/L (12-78) . PROGRESS AND PROCEDURES Discussed case with hospitalist, (call returned 19:27 Dr. Puentes, does not meet inpt criteria). Disposition: Discharged home in good and improved condition. Condition: good. CLINICAL IMPRESSION Multiple superficial abscesses to the right upper extremity, left upper extremity and left lower extremity. No incision and drainage. INSTRUCTIONS Your Current Medications: CONTINUE TAKING THE FOLLOWING MEDICATIONS: None*. Prescription Medications: Clindamycin 300 mg: take 1 capsule orally every 6 hours for 7 days. No refill. Follow-up: Follow up with doctor in two days. Call for an appointment. (Electronically signed by Rod Bustamante Dr. 11/13/2016 21:15)
--- NOTE | 2016-11-13 23:07 | ED MED RECONCILIATION SUMMARY ---
Patient: MAG SHANKAR Medication Reconciliation Report [facility] VisitID: [id number] [address] [place] [address] 26y, M Registration Date/Time: 11/13/2016 Weight: 78.4 kg Height/Length: 68 in. BMI: 26.3 ALLERGIES: Sulfa Antibiotics The patient's Home Medications are listed below: NONE. The source(s) of the original Home Medication information: Not obtained. The following Medications were given to the patient in the Emergency Department: Vancomycin [IVPB] IVPB bolus 0, then 1.5 gm 0.75 gm/hr, administered: 11/13/2016 9:10:00 PM The following Medications were prescribed to the patient: Clindamycin 300 mg: take 1 capsule orally every 6 hours for 7 days. No refill. -- Rod Bustamante Dr.
--- NOTE | 2016-11-13 23:07 | ED MED RECONCILIATION SUMMARY ---
Patient: MAG SHANKAR Medication Reconciliation Report [facility] VisitID: [id number] [address] [place] [address] 26y, M Registration Date/Time: 11/13/2016 Weight: 78.4 kg Height/Length: 68 in. BMI: 26.3 ALLERGIES: Sulfa Antibiotics The patient's Home Medications are listed below: NONE. The source(s) of the original Home Medication information: Not obtained. The following Medications were given to the patient in the Emergency Department: Vancomycin [IVPB] IVPB bolus 0, then 1.5 gm 0.75 gm/hr, administered: 11/13/2016 9:10:00 PM The following Medications were prescribed to the patient: Clindamycin 300 mg: take 1 capsule orally every 6 hours for 7 days. No refill. -- Rod Bustamante Dr.
--- NOTE | 2016-11-13 23:07 | ED DISCHARGE INSTRUCTIONS ---
Patient: MAG SHANKAR General Instructions [facility] VisitID: [id number] [place] [address] 26y, M Registration Date/Time: 11/13/2016 Multiple superficial abscesses to the right upper extremity, left upper extremity and left lower extremity. No incision and drainage. INSTRUCTIONS Your Current Medications: CONTINUE TAKING THE FOLLOWING MEDICATIONS: None*. Prescription Medications: Clindamycin 300 mg: take 1 capsule orally every 6 hours for 7 days. No refill. Follow-up: Follow up with doctor in two days. Call for an appointment. ADDITIONAL INFORMATION Abscess (Antibiotic Treatment Only) An abscess (sometimes called a boil) occurs when bacteria get trapped under the skin and begin to grow. Pus forms inside the abscess as the body responds to the bacteria. An abscess can occur with an insect bite, ingrown hair, blocked oil gland, pimple, cyst, or puncture wound. In the early stages, redness and tenderness are the only symptoms. Sometimes, this stage can be treated with antibiotics alone. If the abscess does not respond to antibiotic treatment, it will need to be drained with a small cut, under local anesthesia. Home care The following will help you care for your abscess at home: Soak the wound in hot water or apply hot packs (small towel soaked in hot water) to the area for 20 minutes at a time. Do this three to four times a day. Apply antibiotic cream or ointment onto the skin 3-4 times a day, unless something else was prescribed. Some ointments include an antibiotic plus a local pain reliever. If your doctor prescribed antibiotics, do not stop taking this medication until you have finished the prescribed course or the doctor tells you to stop. You may use an [id number] pain medication to control pain, unless another pain medicine was prescribed. If you have chronic liver or kidney disease or ever had a stomach ulcer or GI bleeding, talk with your doctor before using these any of these. Follow-up care Follow up with your health care provider as advised by our staff. Look at your wound each day for the signs of worsening infection listed below. When to seek medical care Get prompt medical attention if any of the following occur: An increase in redness or swelling Red streaks in the skin leading away from the abscess An increase in local pain or swelling Fever of 100.4F (38C) or higher, or as directed by your health care provider Pus or fluid coming from the abscess Cellulitis You have an infection of the skin known as cellulitis. This usually starts with a scrape, cut, insect bite, blister or other opening in the skin which becomes infected. This is a serious condition. It must be watched closely to be sure the infection is not spreading. With antibiotic treatment, the size of the red area will gradually shrink in size until the skin returns to normal. This will take 7-10 days. The red area should never increase in size once the antibiotic medicine has been started. Occasionally, an infection will be resistant to one antibiotic and another one will have to be used. Home Care: 1) Limit the use of the affected part, since excess movement can cause the infection to spread. 2) If the infection is on your leg, walk as little as possible during the first few days of the treatment. Keep your leg elevated while sitting. This will reduce swelling. 3) Take all of the antibiotic medicine exactly as directed until it is gone. Be careful not to miss any doses, especially during the first seven days. Follow Up with your doctor or this facility as directed. Check the infected area daily for the warning signs listed below. Get Prompt Medical Attention if any of the following occur: -- Spreading area of redness -- Increasing swelling or pain -- Appearance of pus or drainage -- Fever over 100.4 F (38.0 C) oral, or over 101.4 F (38.6 C) rectal, after two days on antibiotics Clindamycin Hydrochloride Oral capsule What is this medicine? CLINDAMYCIN (KLIN da LAURO sin) is a lincosamide antibiotic. It is used to treat certain kinds of bacterial infections. It will not work for colds, flu, or other viral infections. How should I use this medicine? Take this medicine by mouth with a full glass of water. Follow the directions on the prescription label. You can take this medicine with food or on an empty stomach. If the medicine upsets your stomach, take it with food. Take your medicine at regular intervals. Do not take your medicine more often than directed. Take all of your medicine as directed even if you think your are better. Do not skip doses or stop your medicine early. Talk to your fern picker regarding the use of this medicine in children. Special care may be needed. What side effects may I notice from receiving this medicine? Side effects that you should report to your doctor or health healthcare educator as soon as possible: allergic reactions like skin rash, itching or hives, swelling of the face, lips, or tongue dark urine pain on swallowing redness, blistering, peeling or loosening of the skin, including inside the mouth unusual bleeding or bruising unusually weak or tired yellowing of eyes or skin Side effects that usually do not require medical attention (report to your doctor or health healthcare educator if they continue or are bothersome): diarrhea itching in the rectal or genital area joint pain nausea, vomiting stomach pain What may interact with this medicine? chloramphenicol erythromycin kaolin products What if I miss a dose? If you miss a dose, take it as soon as you can. If it is almost time for your next dose, take only that dose. Do not take double or extra doses. Where should I keep my medicine? Keep out of the reach of children. Store at room temperature between 20 and 25 degrees C (68 and 77 degrees F). Throw away any unused medicine after the expiration date. What should I tell my health care provider before I take this medicine? They need to know if you have any of these conditions: kidney disease liver disease stomach problems like colitis an unusual or allergic reaction to clindamycin, lincomycin, or other medicines, foods, dyes like tartrazine or preservatives or trying to get breast-feeding What should I watch for while using this medicine? Tell your doctor or healthcare professional if your symptoms do not start to get better or if they get worse. Do not treat diarrhea with over the counter products. Contact your doctor if you have diarrhea that lasts more than 2 days or if it is severe and watery. You have been given the following additional information: Abscess, Antiobiotic Treatment Only Cellulitis Clindamycin Hydrochloride Oral capsule (Electronically signed by Rod Bustamante Dr. 11/13/2016 21:15)
--- NOTE | 2016-11-13 23:07 | ED MAR SUMMARY ---
..... Medication Administration Record [facility] [address] [place] [address] Patient: MAG SHANKAR Visit ID: [id number] 26y, M Weight: 78.4 kg Height/Length: 68 in BMI: 26.3 ALLERGIES: Sulfa Antibiotics Start 21:10 11/13/2016 Shira Vasquez RJim, Stop 23:06 11/13/2016 Nigel Lin RJim Medication Administered: VANCOMYCIN [IVPB], Dose: 1.5 gm IVPB over 2 hour(s), Rate: 0.75 gm/hr, Site: #1 right foot. Medication Ordered: Vancomycin IV 1.5 gm/500 mL (NOW).
--- NOTE | 2016-11-13 23:07 | ED MAR SUMMARY ---
..... Medication Administration Record [facility] [address] [place] [address] Patient: MAG SHANKAR Visit ID: [id number] 26y, M Weight: 78.4 kg Height/Length: 68 in BMI: 26.3 ALLERGIES: Sulfa Antibiotics Start 21:10 11/13/2016 Shira Vasquez RJim, Stop 23:06 11/13/2016 Nigel Lin RJim Medication Administered: VANCOMYCIN [IVPB], Dose: 1.5 gm IVPB over 2 hour(s), Rate: 0.75 gm/hr, Site: #1 right foot. Medication Ordered: Vancomycin IV 1.5 gm/500 mL (NOW).
== END 2016-11-13 22:05 | disposition home or self-care (01) ==
LOC: ED SRH 16:54
DX: L02.413 Cutaneous abscess of right upper limb (principal); L02.414 Cutaneous abscess of left upper limb; L02.415 Cutaneous abscess of right lower limb; F17.200 Nicotine dependence, unspecified, uncomplicated; Z88.2 Allergy status to sulfonamides
CPT/HCPCS: 90004; 90065; 90100; 92760; 92761; 92762; 92763; 92764; 92765; 92766; 92767; 95059